=== PATIENT | female | born 2000 | race African-American/Black ===

== ENCOUNTER 2022-05-28 20:27 | Emergency (ER) | payer OTHER, SELFPAY ==
[2022-05-28 20:28] VITALS: BP 135/80; PULSE 85; RESP 18; TEMP 36.9; O2SAT 99
[2022-05-28 20:43] VITALS: BP 146/90; PULSE 106; RESP 16; O2SAT 100
--- NOTE | 2022-05-28 20:50 | ED.GENADULT ---
HPI - General Adult General Chief complaint: Allergic Reaction Stated complaint: allergic reaction Time Seen by Provider: 05/28/22 20:40 History of Present Illness HPI narrative: This is a 21-year-old female presenting ED with urticaria. The patient has been dealing with idiopathic urticaria for approximately 7 years. Her symptoms are usually random outbreaks of urticaria over her face neck and torso. This has occurred again today. She has no swelling in her mouth or tongue. She has no voice changes or difficulty swallowing her secretions. She has no difficulty breathing, lightheadedness or presyncope. Patient has never required epi before. She has an appointment with her PCP for further management. Related Data Allergies Allergy/AdvReac Type Severity Reaction Status Date / Time No Known Allergies Allergy Verified 05/28/22 20:27 [facility] Past Medical History Medical History Idiopathic urticaria Exam Narrative: APPEARANCE: No apparent distress. Head: No swelling of lips tongue or uvula no voice changes EYES: EOMI, NOSE: Atraumatic NECK: Trachea midline RESPIRATORY: No increased rate of breathing, clear to auscultation CARDIOVASCULAR: RRR, ABDOMINAL: Non-distended soft nontender no guarding or rebound MUSCULOSKELETAl: No obvious deformities NEURO: Alert. Moving 4/4 extremities SKIN:: Wheals over the face, neck and torso mild erythema PSYCHIATRIC: Normal affect Course Vital Signs Vital signs: Vital Signs Temperature 98.4 F 05/28/22 20:28 Pulse Rate 85 05/28/22 20:28 Respiratory Rate 18 05/28/22 20:28 Blood Pressure 135/80 05/28/22 20:28 Pulse Oximetry 99 05/28/22 20:28 Oxygen Delivery Room Air 05/28/22 20:28 Temperature 98.4 F 05/28/22 20:28 Pulse Rate 106 H 05/28/22 20:43 Respiratory Rate 16 05/28/22 20:43 Blood Pressure 146/90 H 05/28/22 20:43 Pulse Oximetry 100 05/28/22 20:43 Oxygen Delivery Room Air 05/28/22 20:28 Medical Decision Making [facility] Narrative Medical decision making narrative: -Presentation: 21-year-old female with chronic urticaria presenting with urticaria. -DDX includes but is not limited to: Allergic reaction, idiopathic urticaria -Co-morbidities complicating care: Chronic in her care in -Social determinants of health: [place] in [employer] with her boyfriend of [place] -External Chart Review: None -Hx from independent Sources: [place] at bedside -Discussion of Management/Consultants: None -Independent interpretation of studies: None Dx tests considered but not ordered: None -Procedures: None -Interventions: 10 mg IM dexamethasone, 50 mg Benadryl, 40 mg Pepcid -Shared decision making / Disposition: Patient has had a scare many times in the past. She is requesting steroids Benadryl and Pepcid. This will be provided. she will be discharged. -RX EpiPen Vital Signs Vital Signs: Vital Signs Temperature 98.4 F 05/28/22 20:28 Pulse Rate 85 05/28/22 20:28 Respiratory Rate 18 05/28/22 20:28 Blood Pressure 135/80 05/28/22 20:28 Pulse Oximetry 99 05/28/22 20:28 Oxygen Delivery Room Air 05/28/22 20:28 Temperature 98.4 F 05/28/22 20:28 Pulse Rate 106 H 05/28/22 20:43 Respiratory Rate 16 05/28/22 20:43 Blood Pressure 146/90 H 05/28/22 20:43 Pulse Oximetry 100 05/28/22 20:43 Oxygen Delivery Room Air 05/28/22 20:28 Discharge Plan Discharge Clinical Impression: Urticaria Patient Disposition: Home, Self-Care Condition: Stable Instructions: Antibiotic Form, Urticaria (ED) Additional Instructions: You were seen in the emergency department for urticaria Please carry an EpiPen with you in the future and use as instructed. Please follow-up with your primary care physician. Prescriptions: New epinephrine 0.3 mg/0.3 mL auto-injector 0.3 mg IM ONCE Qty: 2 0RF Rx Instructions: as a
[2022-05-28 20:59] VITALS: O2SAT 100
[2022-05-28 21:06] VITALS: O2SAT 100
[2022-05-28] MEDS: diphenhydrAMINE HCl CAP 25 MG CAPSULE 50 MG PO (21:11)
[2022-05-28] MEDS: FAMOTIDINE 20 MG TABLET 40 MG PO (21:11)
== END 2022-05-28 21:22 | disposition home or self-care (01) ==
LOC: ANHED 21:07
PROVIDERS: Emergency Provider Emergency Medicine
DX: L50.1 Idiopathic urticaria (principal)
CPT/HCPCS: 96372; 99283; A9270; J1100